=== PATIENT | female | born 1980 | race Caucasian/White ===

== ENCOUNTER 2016-08-11 19:50 | Emergency (ER) | payer OTHER ==
[~2016-08-11] VITALS: Ht 167.6 cm; Wt 54.4 kg
[~2016-08-11 19:50] MED LIST: KLONOPIN2 MG PO
[2016-08-11 19:53] VITALS: BP 108/72
--- NOTE | 2016-08-11 23:09 | NUR ---
PATIENT LEFT WITHOUT BEING SEEN BY DR. BOSTON. NO FURTHER CARE PROVIDED FOR PATIENT.
== END 2016-08-11 23:09 | disposition left against medical advice (07) ==
LOC: MED 19:50
DX: M54.9 Dorsalgia, unspecified (principal); Z53.21 Procedure and treatment not carried out due to patient leaving prior to being seen by health care provider

== ENCOUNTER 2023-07-09 17:54 | Emergency (ER) | payer OTHER ==
[~2023-07-09] VITALS: Ht 167.6 cm; Wt 57.6 kg
[~2023-07-09 17:54] MED LIST changes: +CLON-575 PO; -KLONOPIN2 MG PO
[2023-07-09 17:58] VITALS: BP 173/112; PULSE 103; RESP 19; TEMP 97.9; O2SAT 100
[2023-07-09] MEDS ORDERED: ATA25 PO (18:23)
[2023-07-09 19:09] VITALS: BP 149/99; PULSE 99; RESP 19; TEMP 97.9; O2SAT 100
== END 2023-07-09 19:09 | disposition home or self-care (01) ==
LOC: MED 17:54
DX: F41.9 Anxiety disorder, unspecified (principal); F15.10 Other stimulant abuse, uncomplicated; Z79.899 Other long term (current) drug therapy
CPT/HCPCS: 93005; 99283